=== PATIENT | male | born 1955 | race Caucasian/White ===

== ENCOUNTER 2017-04-21 00:18 | Emergency (ER) | payer BC ==
[2017-04-21 00:54] LABS: BASOPHILS 0.5 % (0-2); EOSINOPHILS 6.5 % (0-7); HEMATOCRIT 49.7 % (42.0-54.0); HEMOGLOBIN 16.7 g/dL (13.5-17.5); IMMATURE GRANULOCYTES 0.4 % (0-5); MCHC 33.6 g/dL (31.0-37.0); MCV 92.4 fL (80.0-100.0); MEAN PLATELET VOLUME 10.3 fL (7.4-10.4); NEUTROPHILS 60.6 % (40-80); PLATELET COUNT 168 10x3/uL (130-400); RBC 5.38 10x6/uL (4.20-6.10); RDW 12.8 % (11.5-14.5); WBC 8.4 10x3/uL (4.8-10.8)
[2017-04-21 01:18] LABS: ALBUMIN 3.4 g/dL (3.4-5.0); ALKALINE PHOSPHATASE 63 U/L (46-116); ALT (SGPT) 39 U/L (10-68); BILIRUBIN - TOTAL 0.31 mg/dL (0.2-1.3); CALC OSMOLALITY 291 mosm/kg (275-300); CALCIUM 8.4 mg/dL (8.5-10.1); CARBON DIOXIDE 29.1 mmol/L (21.0-32.0); CHLORIDE - SERUM 108 mmol/L (98-107); CREATININE - SERUM 1.2 mg/dL (0.6-1.3); GLUCOSE 108 mg/dL (74-106); POTASSIUM - SERUM 3.9 mmol/L (3.5-5.1); PROTEIN - SERUM 6.5 g/dL (6.4-8.2); SODIUM 145 mmol/L (136-145); UREA NITROGEN 17 mg/dL (7-18); eGFR NON AFRICAN AMERICAN 65 mL/min (90-120)
[2017-04-21 01:26] LABS: TROPONIN-I < 0.017 ng/mL (0.000-0.060)
== END 2017-04-21 01:59 | disposition home or self-care (01) ==
LOC: D.ER 00:18
PROVIDERS: Emergency Medicine
DX: R53.1 Weakness (principal)

== ENCOUNTER 2018-05-02 05:55 | Day surgery (SDC) | payer BC ==
[2018-05-01 09:06] LABS: BASOPHILS 0.6 % (0-2); EOSINOPHILS 3.4 % (0-7); HEMATOCRIT 53.9 % (42.0-54.0); HEMOGLOBIN 17.5 g/dL (13.5-17.5); IMMATURE GRANULOCYTES 0.4 % (0-5); LYMPHOCYTES 19.7 % (15-50); MCHC 32.5 g/dL (31.0-37.0); MCV 83.3 fL (80.0-100.0); MEAN PLATELET VOLUME 10.2 fL (7.4-10.4); NEUTROPHILS 64.9 % (40-80); PLATELET COUNT 176 10x3/uL (130-400); RBC 6.47 10x6/uL (4.20-6.10); RDW 15.7 % (11.5-14.5); WBC 7.3 10x3/uL (4.8-10.8)
[2018-05-01 09:14] LABS: ANION GAP 10.9 mmol/L (8-16); CALCIUM 9.6 mg/dL (8.5-10.1); CARBON DIOXIDE 32.4 mmol/L (21.0-32.0); CREATININE - SERUM 1.4 mg/dL (0.6-1.3); POTASSIUM - SERUM 4.3 mmol/L (3.5-5.1)
[2018-05-01 09:54] LABS: APTT 31.3 SECONDS (22.8-39.4); INR 1.12 (0.85-1.17); PROTIME 13.9 SECONDS (11.6-15.0)
[~2018-05-02] VITALS: Ht 188 cm; Wt 108.9 kg
--- NOTE | ~2018-05-02 | OP ---
PATIENT NAME: MEL MANZANO II MEDICAL RECORD: [id number] :53 LOCATION:D.OPS ADMISSION DATE: SURGEON: EDU GREEN MD DATE OF OPERATION: 05/02/2018 PREOPERATIVE DIAGNOSIS: Painful varicosities of the right lower extremity developing following a successful VenaSeal procedure ablating his greater saphenous veins last year. POSTOPERATIVE DIAGNOSIS: Painful varicosities of the right lower extremity developing following a successful VenaSeal procedure ablating his greater saphenous veins last year. SURGEON: Edu Green MD PRIMARY CARE PHYSICIAN: Edu Stein MD OPERATIONS PERFORMED: High ligation and division of the right greater saphenous vein and multiple stab avulsion phlebectomies, 21 in number. ANESTHESIA: General with LMA per [facility]ATCH [employer]. PREOPERATIVE NOTE: Mr. Manzano is a 63-year-old generally healthy white male patient who has had very significant difficulties with varicose veins in his lower extremities. He had a good result in 2017 from bilateral VenaSeal procedures, but has fairly rapidly developed recurrence in the right leg. The patient has neovascular type of dilated veins in the femoral triangle, which are tributaries of the greater saphenous. The greater saphenous, about 2 cm distal from the saphenofemoral junction, is quite atretic as having been ablated from the prior procedure, but there are number of draining veins into this area. I think that there are also numerous family consumer scientist drains which are incompetent and are filling the recurrent varicosities on the medial aspect of the thigh and leg. I plan extensive phlebectomy, and through an incision in the groin, hopefully ligate and divide the tributary veins and/or the greater saphenous vein stump closer to the femoral vein and hope that further neovascularization phenomenon will not occur. Under anesthesia, in supine position, the patient was prepped and draped in a sterile manner. I made an oblique incision over the saphenofemoral junction, which I have located with ultrasound and excised one benign-appearing slightly enlarged lymph node, which was discarded and not sent for histopathology. I divided numerous tributary veins in this area using 3-0 and 2-0 Vicryl ligatures and Hemoclips. I exposed the remaining saphenous vein stump and saphenofemoral junction and divided tributary veins which were joining at that point. I ligated and completely divided the greater saphenous vein about 2 cm distal from the saphenofemoral junction, which was proximal to the previously treated segment of vein by few millimeters. Hemostasis was excellent. Some electrocautery was used. The wound was irrigated and infiltrated with 0.25% Marcaine without epinephrine. The wound was closed with interrupted inverted 3-0 Vicryl and then running intracuticular 4-0 Monocryl and Dermabond glue. I then started distally just above the ankle and worked proximally to the groin and upper thigh. I made approximately 21 or 22 stab incisions and used phlebectomy hooks to oyster picker the underlying varicose veins. These veins had been identified preop with the patient standing and cheema with indelible ink on the skin were made to help in locating the veins with the patient supine. The OPERATIVE REPORT [id number] MEL MANZANO II veins were avulsed as extensively as I could. Hemostasis was obtained with direct pressure and lastly the incisions were closed with interrupted simple 4-0 Prolene. The phlebectomy incisions were dressed with Maxorb Ag, Tegaderm, and Cavilon skin prep. The patient was then placed in his knee high stocking. The leg, stocking, and thigh were wrapped snugly with Kerlix roll and Coban elastic adhesive tape. The patient had been kept in Trendelenburg position during most of the operation. He was leveled out, awakened, and taken to the recovery room in stable condition without signs of bleeding or other complications. My plan and instructions for Mr. Manzano; he will go home today from the outpatient department and I have asked that he rest at home with his legs elevated higher than his heart for the majority of the rest of the day and tonight. Tomorrow, he may be up and around as tolerated. Tomorrow, he may remove his bandage and remove his stocking and he can shower if he wishes. If he wishes, he can remove the plastic Tegaderm dressings and wash the incision sites directly with soap and water. I will have him apply a small amount of Bactroban ointment to the incision sites after showering and then I want him to wear his knee high stocking and also to wrap his thigh with a 4-inch Jimmy and wear these continuously until he comes back to see me in my office on . He was given a prescription for [place] 5/325, #15, he can take one or two p.o. q. 4 hours p.r.n. pain, though he and his feel he will not need these and will not need to fill the prescription as he has an aversion to hydrocodone. Note, I did infiltrate all of the stab phlebectomy incisions with 0.25% Marcaine without epinephrine and he is certainly having very little, if no, immediate or early postoperative pain. Blood loss, I estimated at about 10 cc, none was replaced. Sponges, instruments, and needles were accounted for. No drain was used and no surgical specimen was submitted for histopathology. TRANSINT:[id number] Voice Confirmation ID: [id number] DOCUMENT ID: [id number] EDU GREEN MD at 0908 CC: EDU STEIN [id number] DICTATION DATE: 05/02/18 1415 [facility] BRUSHER: 05/02/18 1614 [facility] 05/02/18 [id number] [place] [address]
[~2018-05-02 05:55] MED LIST: ASPIRIN EC325 M1 PO; CENTRUM MEN'S1 EACH PO; FIBRICOR105 MG PO; HYDROCHLOROTHIA25 MG PO; VITAMIN D3400 UNI1 PO; ZINC50 MG PO
[2018-05-02 06:47] VITALS: BP 134/89; Ht 188 cm; Wt 108.9 kg
== END 2018-05-02 13:40 | disposition home or self-care (01) ==
LOC: D.OPS 05:55
PROVIDERS: Surgery
DX: I83.811 Varicose veins of right lower extremity with pain (principal); Z01.812 Encounter for preprocedural laboratory examination